=== PATIENT | male | born 1995 | race Caucasian/White ===

== ENCOUNTER 2017-10-17 19:26 | Emergency (ER) | payer BC, OTHER ==
[~2017-10-17] VITALS: Ht 177.8 cm; Wt 67.5 kg
[2017-10-17 19:33] VITALS: BP 130/68; PULSE 97; RESP 18; TEMP 98.4; O2SAT 96
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
== END 2017-10-17 20:50 | disposition home or self-care (01) ==
LOC: PHEFT 19:26
DX: H11.32 Conjunctival hemorrhage, left eye (principal); Z72.0 Tobacco use
CPT/HCPCS: 99282